=== PATIENT | male | born 1980 | race Caucasian/White ===

== ENCOUNTER → 2016-08-29 | Outpatient (CLI) | payer SELFPAY ==
--- NOTE | 2016-08-29 13:43 | DI ---
CT PELVIS SCAN WITHOUT IV CONTRAST, 08/29/2016 12:55 PM : Clinical History: Kidney stone. Previous Exam: 06/02/2016; 07/24/2016. Scans are performed from the umbilicus to the symphysis pubis without IV contrast. Sagittal and levi nal images are generated. Scans through the lower abdomen and pelvis show no free fluid collections. There is a 25 x 25 x 30 mm inhomogeneous somewhat lobulated mass located in the posterior aspect of the pelvis at the level of the right ureterovesicular junction. There is no similar mass on the left side. The bladder is unrema rkable and no distal ureteral calculi are visualized, and there is no calculus in the bladder. No oth er mass or adenopathy is present. The prostate is normal in size, and the seminal vesicles are also n ormal. READIN. There is no evidence of a distal ureteral calculus on either side or of a calculus in the bladder . The bladder itself appears normal as do the prostate and seminal vesicles. 2. There is a 25 x 25 x 30 mm inhomogeneous and lobulated isolated mass located in the right side of the pelvis posteriorly at the level of the right ureterovesicular junction. This was present on the previous exams and has not changed. There is no adenopathy identified.
== END ==
LOC: CT 12:47
PROVIDERS: ATTEND Urology
DX: N20.0 Calculus of kidney (principal)
CPT/HCPCS: 72192

== ENCOUNTER → 2016-09-18 | Outpatient (CLI) | payer SELFPAY ==
[2016-09-18 14:06] LABS: BASOPHILS # (AUTO) 0.12 10*3/UL; BASOPHILS % (AUTO) 1.7 % (0-1); EOSINOPHILS % (AUTO) 2.5 % (0-8); HEMATOCRIT 51.2 % (42.0-52.0); HEMOGLOBIN 17.2 g/dL (14.0-18.0); IMM GRAN % (AUTO) 0.4 % (0-5); IMM GRAN# (AUTO) 0.03 10*3/UL; LYMPHOCYTES % (AUTO) 33.3 % (10-50); MEAN CORPUSCULAR HEMOGLOBIN 26.6 PG (27-31); MEAN CORPUSCULAR HGB CONC 33.6 g/dL (33-37); MEAN PLATELET VOLUME 9.7 FL (7.4-12.2); MONOCYTES # (AUTO) 0.64 10*3/UL (0.3-0.8); MONOCYTES % (AUTO) 9.3 % (5-15); NEUTROPHILS # (AUTO) 3.64 10*3/UL; NEUTROPHILS % (AUTO) 52.8 % (50-80); RDW COEFFICIENT OF VARIATION 14.7 % (11.5-14.5); RED BLOOD COUNT 6.47 10^6/uL (4.70-6.10)
[2016-09-18 14:11] LABS: PLATELET MORPHOLOGY COMMENT NORMAL MORPHOLOGY (NORM)
[2016-09-18 14:23] LABS: ASPARTATE AMINO TRANSFERASE 27 IU/L (21-57); BILIRUBIN,TOTAL 0.4 mg/dL (0.3-1.2); BLOOD UREA NITROGEN 11 mg/dL (7-22); CALCIUM 9.7 mg/dL (8.7-10.7); CHLORIDE 106 meq/L (98-112); EST GLOMERULAR FILTRATION > 60 (>60 ml/min/1.73m(2)); GLUCOSE 106 mg/dL (78-110); POTASSIUM 3.9 meq/L (3.8-5.2); SODIUM 142 meq/L (135-145); TOTAL PROTEIN 7.7 g/dL (6.1-8.0)
== END ==
LOC: LAB 13:48
PROVIDERS: ATTEND Family Medicine
DX: R19.00 Intra-abdominal and pelvic swelling, mass and lump, unspecified site (principal)
CPT/HCPCS: 36415; 80053; 85025; 85610; 85730

== ENCOUNTER 2016-12-31 11:09 | Emergency (ER) | payer SELFPAY ==
[2016-12-31] MEDS ORDERED: KETOROLAC 30 MG/1 ML VIAL IVP ONE (11:30)
[2016-12-31] MEDS ORDERED: HYDROmorphone 2 MG/1 ML IVP ONE ×2 (11:30→13:05)
[2016-12-31] MEDS ORDERED: Sodium Chloride 0.9% 1,000 ML PRIMARY IV ONE (11:30)
[2016-12-31] MEDS ORDERED: TAMSULOSIN 0.4 MG CAPSULE PO ONE (11:30)
[2016-12-31 11:35] VITALS: TEMP 95.7
[2016-12-31] MEDS ORDERED: ONDANSETRON 4 MG/2 ML VIAL ONE (11:42)
[2016-12-31] MEDS: ONDANSETRON 4 MG/2 ML VIAL IVP ONE ×2 (11:45→14:27)
[2016-12-31] MEDS: NORMAL SALINE 10 ML SYRINGE FLUSH IVP PRN ×2 (11:46→14:28)
[2016-12-31 12:30] LABS: BASOPHILS # (AUTO) 0.12 10*3/UL; BASOPHILS % (AUTO) 1.7 % (0-1); EOSINOPHILS # (AUTO) 0.16 10*3/UL; EOSINOPHILS % (AUTO) 2.3 % (0-8); HEMATOCRIT 45.4 % (42.0-52.0); HEMOGLOBIN 15.1 g/dL (14.0-18.0); LYMPHOCYTES # (AUTO) 1.43 10*3/uL; MEAN CORPUSCULAR HEMOGLOBIN 26.5 PG (27-31); MEAN CORPUSCULAR HGB CONC 33.3 g/dL (33-37); MEAN CORPUSCULAR VOLUME 79.8 FL (80-90); MEAN PLATELET VOLUME 9.4 FL (7.4-12.2); MONOCYTES # (AUTO) 0.56 10*3/UL (0.3-0.8); MONOCYTES % (AUTO) 8.1 % (5-15); NEUTROPHILS # (AUTO) 4.63 10*3/UL; NEUTROPHILS % (AUTO) 66.9 % (50-80); PLATELET MORPHOLOGY COMMENT NORMAL MORPHOLOGY (NORM); RBC MORPHOLOGY COMMENT NORMAL MORPHOLOGY (NORM); RED BLOOD COUNT 5.69 10^6/uL (4.70-6.10); WBC MORPHOLOGY COMMENT NORMAL MORPHOLOGY (NORM)
[2016-12-31 12:39] LABS: BLOOD UREA NITROGEN 13 mg/dL (7-22); CALCIUM 8.6 mg/dL (8.7-10.7); EST GLOMERULAR FILTRATION > 60 (>60 ml/min/1.73m(2)); SERUM ALBUMIN 3.9 g/dL (3.5-4.8)
[2016-12-31 13:09] LABS: BILIRUBIN,URINE NEGATIVE (NEG); CLARITY,URINE CLEAR (CLEAR); COLOR,URINE YELLOW; GLUCOSE, URINE (UA) NEGATIVE (NEG); NITRATE,URINE NEGATIVE (NEG); OCCULT BLOOD,URINE LARGE (NEG); PROTEIN,URINE 30 mg/dl (NEG); UROBILINOGEN,URINE 0.2 EU/dL (0.2)
[2016-12-31 13:13] LABS: URINE SAMPLE TYPE VOIDED SPECIMEN
[2016-12-31 13:14] LABS: RBC,URINE 25-30 /hpf; SQUAMOUS EPITHELIAL CELL,UR FEW; WBC,URINE 0-2
--- NOTE | 2016-12-31 13:42 | DI ---
CT ABD W/CN AND PELVIS W/CN,12/31/2016 11:31 AM: Clinical History: Left flank pain and groin pain. Previous Exam: None at this facility. Findings: Multiple helically acquired CT images are obtained through the abdomen and pelvis following the intra venous administration of contrast. There is mild left hydronephrosis and left hydroureter. There is a 2.5 mm stone within the left dista l ureter at the ureterovesicular junction. The appendix is normal. The liver contains multiple subcentimeter hypodensities which are too small to characterize. There is no free air nor free fluid. The gallbladder, pancreas and adrenals are unremarkable. Impression: 2.5 mm stone within the left distal ureter causing moderate left hydronephrosis and hydroureter
[2016-12-31 14:05] VITALS: RESP 14
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
== END 2016-12-31 15:43 | disposition home or self-care (01) ==
LOC: ER 11:09
DX: N23 Unspecified renal colic (principal); R10.32 Left lower quadrant pain
CPT/HCPCS: 36415; 74177; 80053; 81001; 81003; 85025; 96361; 96374; 96375; 96376; 99283 ×2; J1885; J1170; J2405; J7030

== ENCOUNTER → 2017-01-21 | Outpatient (CLI) | payer SELFPAY ==
--- NOTE | 2017-01-21 13:21 | DI ---
MRI PELVIS W/WO DEACON,01/21/2017 7:56 AM: Clinical History: Benign neoplasm of the prostate. Previous Exam: None at this facility. Findings: Multiplanar MR images are obtained through the pelvis both before and after the intravenous administr ation of 20 mL of ProHance. There is a normal-appearing urinary bladder. Marrow signal is preserved except for one area within the proximal left proximal femur. There is also some increased bone formation at the head neck junction of both proximal femurs. The sacrum is unremarkable. The lower lumbar spine is also normal. Impression: 1. No evidence of pelvic lesion or bony pelvic mass. 2. Area of increased marrow signal within the proximal left femur in the region of some new bone form ation along the head neck junction. This is most consistent with some underlying femoral acetabular i mpingement. Correlate clinically.
== END ==
LOC: MRI 07:52
DX: D36.10 Benign neoplasm of peripheral nerves and autonomic nervous system, unspecified (principal)
CPT/HCPCS: 36415; 72197; 84153